=== PATIENT | female | born 1965 | race Caucasian/White ===

== ENCOUNTER → 2018-04-26 14:04 | Outpatient (CLI) | payer OTHER, SELFPAY ==
[2018-04-26 15:37] LABS: Free T4, Direct Thyroxine 1.18 ng/dL (0.78-2.19)
[2018-04-26 15:51] LABS: Thyroid Stimulating Hormone 1.93 uIU/mL (0.47-4.68)
== END ==
PROVIDERS: Visit Provider Internal Medicine
DX: E03.9 Hypothyroidism, unspecified (principal)
CPT/HCPCS: 36415; 84439; 84443

== ENCOUNTER 2019-05-03 08:06 | Day surgery (SDC) | payer OTHER, SELFPAY ==
--- NOTE | 2019-05-03 | PATH_ITS ---
[facility] Accession Number: [id number] . 01 Material submitted: . PART A: body - NO SITE DESIGNATED PART B: gastrointestinal site - GASTRIC POLYPS PART C: esophagus - PROXIMAL, DISTAL ESOPHAGUS PART D: sigmoid colon - SIGMOID COLON POLYP . 01 Clinical history: . A. R/O H. PYLORI C. R/O EOE . 02 Diagnosis: A. Stomach, Biopsy: Gastric antral and body mucosa with mild chronic inflammation. Negative for Helicobacter organisms by immunohistochemistry. Negative for intestinal metaplasia. Negative for dysplasia or malignancy. . B. Gastric Polyps, Biopsies: Fundic gland polyps. No evidence of Helicobacter organisms on H/E stain. Negative for intestinal metaplasia. Negative for dysplasia and malignancy. . C. Proximal, Distal Esophagus, Biopsies: Squamous epithelium with no diagnostic abnormality. Intraepithelial eosinophils are not increased. Negative for dysplasia and malignancy. . D. Sigmoid Colon Polyp, Biopsy: Hyperplastic polyp. [facility] 05/05/2019 1245 Local . 02 Electronically signed: . Wale Milner MD, PhD, Pathologist NPI- [id number] . 01 Gross description: . Part A: NO SITE DESIGNATED: Received in formalin are 3 fragment(s) of monteiro, soft tissue measuring 0.1 x 0.1 x 0.1 cm to 0.3 x 0.2 x 0.2 cm submitted entirely in 1 cassette(s) Part B: GASTRIC POLYPS: Received in formalin are 2 fragment(s) of monteiro, soft tissue measuring 0.1 x 0.1 x 0.1 cm to 0.2 x 0.2 x 0.2 cm submitted entirely in 1 cassette(s) Part C: PROXIMAL, DISTAL ESOPHAGUS: Received in formalin are 3 fragment(s) of monteiro, soft tissue measuring 0.1 x 0.1 x 0.1 cm to 0.3 x 0.2 x 0.2 cm submitted entirely in 1 cassette(s) Part D: SIGMOID COLON POLYP: Received in formalin is 1 fragment(s) of monteiro, soft tissue measuring 0.3 x 0.3 x 0.2 cm submitted entirely in 1 cassette(s) /[facility] 05/03/2019 2100 Local . 02 Microscopic: . A. An immunohistochemical stain was performed to evaluate for Helicobacter organisms and is negative. The control stain showed appropriate reactivity. . * This test was developed and its performance characteristics determined by [facility]. It has not been cleared or approved by the U.S. Food and Drug Administration. The FDA has determined that such clearance or approval is not necessary. This test is used for clinical purposes. It should not be regarded as investigational or for research. . 02 Pathologist provided ICD-10: R13.14, K63.5, K29.70, K31.7 . 02 CPT . 074894, 524609, 786997, 747746, [id number] Performed at: 01 [facility] [address] [place] [address], [place], [place] [id number] MD Farhat Crisostomo MD Phone: [phone] Performed at: 02 [facility] [address] [place], [place] [id number] MD Sarah Sher MD Phone: [phone]
--- NOTE | 2019-05-03 08:04 | PM.HP.1 ---
History of Present Illness History of Present Illness Date Patient Seen: 05/03/19 Chief complaint: [id number] $62 Narrative: Patient is a 53 year old female presented for EGD and Colonoscopy. Last seen in the office 11/17/2018 for trouble swallowing. Noted she was also due for screening colonoscopy. No prior colonoscopy. Meds Home Medications and Allergies Home Medications Medication Instructions Recorded Confirmed Type levothyroxine 125 mcg PO DAILY 05/03/19 05/03/19 History lisinopril 10 mg PO DAILY 05/03/19 05/03/19 History Allergies Allergy/AdvReac Type Severity Reaction Status Date / Time No Known Drug Allergies Allergy Verified 05/03/19 08:19 Review of Systems Review of Systems ROS: Yes All systems reviewed with the patient and are negative except as otherwise documented Exam Const General: cooperative, healthy appearing, comfortable and well developed HENMT Head: normal to inspection, normocephalic and atraumatic Resp Effort & Inspection: normal respiratory effort, able to speak in complete sentences and normal respiratory pattern Auscultation: clear to auscultation bilaterally Cardio Rate: regular rate Rhythm: regular rhythm Heart Sounds: S1 normal and S2 normal GI Palpation: soft Auscultation: normal bowel sounds Extrem Right upper extremity: no edema Left upper extremity: no edema Assessment & Plan Assessment & Plan narrative: 1. Dysphagia 2. Screening Colonoscopy - EGD and Colonoscopy, further recommendations to follow
[2019-05-03 08:21] VITALS: BP 150/96; PULSE 73; RESP 16; TEMP 36.1; O2SAT 99; BMI 32.4
[2019-05-03] MEDS: SODIUM CHLORIDE 0.9% 1,000 ML 70 ML IV ×2 (08:33→08:44)
[2019-05-03] MEDS: LIDOCAINE 4% SOLN 50 ML 20 ML TOP (09:10)
[2019-05-03] MEDS: fentaNYL 250 MCG/5 ML INJ IV (09:12)
[2019-05-03] MEDS: MIDAZOLAM 5 MG/5 ML VIAL IV (09:13)
[2019-05-03 09:46] VITALS: BP 113/69; PULSE 70; RESP 11; TEMP 36.5; O2SAT 95
--- NOTE | 2019-05-03 09:49 | PM.OP.ENDO ---
Operative Date/Time/Diagnoses Date of procedure: 05/03/19 Time of procedure: 09:12 Procedure Notes Procedure in detail: Surgeon: Karen Magdaleno DO Procedure: Esophagogastroduodenoscopy with esophageal and gastric biopsy and colonoscopy with polypectomy Preoperative diagnosis: 1. Dysphagia 2. Screening colonoscopy, average risk Postoperative diagnosis: 1. Small Hiatal hernia 2. Normal exam for dysphagia out eosinophilic esophagitis 3. Multiple small gastric polyps, biopsied 4. Sigmoid polyp removed with cold forceps, removed with cold forceps 5. Scattered sigmoid diverticulosis 6. Grade 1 internal hemorrhoids 7. Perianal skin tags Medications: Conscious sedation using 4% lidocaine gargle, 7 mg IV of Midazolam and 150_ mcg IV of Fentanyl (total for both procedures) Preanesthesia Assessment An H and P was performed/updated and the Px?s ASA class is 1. The procedure was discussed in detail with the patient. The potential risks and complications including infection, bleeding, missed lesions, perforation, need for surgery in case of perforation, prolonged hospital stay, and were explained. A brief question and answer period was allotted and once all questions were answered, informed consent was obtained. The patient was brought back to the procedure room and placed on standard monitoring. The patient?s vital signs were monitored continuously throughout the entire procedure. Prior to starting, a timeout was performed to confirm the patient?s identity, allergies, medications, and procedure. Procedure in detail The patient was placed in left lateral decubitus position and a bite block was inserted. The tip of the upper endoscope was placed into the mouth and advanced without difficulty under direct visualization into the esophagus. Esophagus: -normal exam for dysphagia, biopsy to out eosinophilic esophagitis Stomach: -small hiatal hernia -mild gastritis diffuse across the gastric body, biopsied rule out H pylori -scattered small gastric polyps, biopsied Duodenum: -normal-appearing small bowel After the upper endoscopy, preparations were made for the colonoscopy. Once adequate sedation was obtained a SAVANNAH was performed. The digital rectal examination did not reveal any palpable lesions. External skin tags were appreciated. The tip of the colonoscope was placed in the anal canal and advanced without difficulty all the way to the cecum which was identified by the appendiceal orifice and the ileocecal valve. 3 mm polyp in the sigmoid colon removed with cold forceps. Scattered diverticulosis in the sigmoid colon. Grade 1 internal hemorrhoids retroflexion The patient tolerated the procedure well and will be brought back to the recovery area to be discharged once criteria are met. The prep was judged to be good/excellent and adequate to identify polyps less than 5 mm. The withdrawal time was 8min. The total physician intraservice time was 29min. Complications There were no complications and estimated blood loss was minimal. Recommendations Resume previous diet Continue outpatient medications Follow-up pathology results Repeat colonoscopy based on pathology results, if adenomatous tissue recommend repeat in 5 years Follow-up at our office if persistent symptoms An emergency contact number was given to the patient for any complications related to the procedure Scope withdrawal time: 8min Sedation minutes: 29
[2019-05-03 09:51] VITALS: BP 102/67; PULSE 65; RESP 11; O2SAT 95
[2019-05-03 09:56] VITALS: BP 102/65; PULSE 74; RESP 14; O2SAT 96
[2019-05-03 10:01] VITALS: BP 102/49; PULSE 71; RESP 19; TEMP 36.1; O2SAT 97
[2019-05-03 10:10] VITALS: BP 108/73; PULSE 64; RESP 15; TEMP 36.3; O2SAT 98
== END 2019-05-03 10:21 | disposition home or self-care (01) ==
PROVIDERS: Referring Provider Student in an Organized Health Care Education/Training Program; Visit Provider Student in an Organized Health Care Education/Training Program
PROC: 0DJ08ZZ Inspection of Upper Intestinal Tract, Via Natural or Artificial Opening Endoscopic (ICD-10-PCS; CPT 43235; 2019-05-03 09:30)
PROC: 0DJD8ZZ Inspection of Lower Intestinal Tract, Via Natural or Artificial Opening Endoscopic (ICD-10-PCS; CPT 45378; 2019-05-03 09:30)
DX: Z12.11 Encounter for screening for malignant neoplasm of colon (principal); R13.14 Dysphagia, pharyngoesophageal phase; K44.9 Diaphragmatic hernia without obstruction or gangrene; K57.30 Diverticulosis of large intestine without perforation or abscess without bleeding; K64.0 First degree hemorrhoids; K64.4 Residual hemorrhoidal skin tags; K63.5 Polyp of colon; K31.7 Polyp of stomach and duodenum; K29.50 Unspecified chronic gastritis without bleeding
CPT/HCPCS: 45380; 43239; J2250; J3010

== ENCOUNTER → 2019-05-10 14:15 | Outpatient (CLI) | payer OTHER, SELFPAY ==
[2019-05-10 16:49] LABS: TSH w/ Reflex to FT4 3.07 uIU/mL (0.47-4.68)
== END ==
PROVIDERS: PCP Registered Nurse Diabetes Educator; Referring Provider Internal Medicine; Visit Provider Internal Medicine
DX: E03.9 Hypothyroidism, unspecified (principal)
CPT/HCPCS: 36415; 84443

== ENCOUNTER → 2019-10-03 10:18 | Outpatient (CLI) | payer OTHER, SELFPAY ==
[2019-10-03 12:39] LABS: TSH w/ Reflex to FT4 4.28 uIU/mL (0.47-4.68)
== END ==
PROVIDERS: PCP Registered Nurse Diabetes Educator; Referring Provider Internal Medicine; Visit Provider Internal Medicine
DX: E06.3 Autoimmune thyroiditis (principal)
CPT/HCPCS: 36415; 84443